=== PATIENT | female | born 1980 | race Caucasian/White ===

== ENCOUNTER 2024-04-10 00:51 | Emergency (ER) | payer OTHER, BC, SELFPAY ==
[2024-04-10 01:06] VITALS: BP 140/86; PULSE 107; TEMP 36.8; O2SAT 98; BMI 28.9
--- NOTE | 2024-04-10 01:32 | ED.SKABFB1 ---
HPI - Skin/Abscess/Foreign Bdy General Chief complaint: Skin/Abscess/Foreign Body Stated complaint: NASAL PAIN Time Seen by Provider: 04/10/24 01:18 Source: patient Mode of arrival: walk-in Limitations: no limitations History of Present Illness HPI narrative: The patient is a 43-year-old female who has a history of dyslipidemia and depression. She is presenting to the emergency department today for evaluation of left-sided facial and nasal pain. 2 days ago, the patient had pain under her left eye in the medial canthus area. There is no redness, discharge, or drainage but was exquisitely painful. Then, the patient developed pain in her right cheek and inside of her nose and had pain to the outside of her nostril area. The patient's pain radiates into her neck on the left side. It is worse by palpation. Relieved by nothing. The patient has been using a warm washcloth and placing it in the nare on the left side. The patient states her symptoms were preceded by a sinus infection 2 weeks ago which she used DayQuil and NyQuil for and manage her symptoms and felt like she had gotten better. The patient was not on antibiotic therapy. The patient does not have a headache. Patient does not have a sore throat. Patient is not putting any medication in her nose. Patient states that she did look in her nose to see if it was a pimple or something that she could pop as that is what it feels like. The pain is so uncomfortable she is unable to get any rest. It is moderate in severity. It is throbbing in nature. Worse to touch her nose or left face. Relieved by nothing. Related Data Home Medications ?Medication ?Instructions ?Recorded ?Confirmed atorvastatin 20 mg tablet mg 04/10/24 fluoxetine 40 mg capsule (Prozac) 40 mg PO DAILY 04/10/24 04/10/24 norgestimate-ethinyl estradiol tab 04/10/24 0.18 mg/0.215mg/0.25mg-35 mcg(28)tablet (Tri-Sprintec (28)) semaglutide 0.25 mg or 0.5 mg (2 0.25 mg subcut QWEEK 04/10/24 04/10/24 mg/3 mL) subcutaneous pen injector ([employer]) Allergies Allergy/AdvReac Type Severity Reaction Status Date / Time No Known Drug Allergies Allergy Verified 04/10/24 00:56 Review of Systems ROS Status of ROS 10 or more systems reviewed and unremarkable except as noted in history and below [facility] Medical History High cholesterol ?E78.00 - Pure hypercholesterolemia, unspecified (ICD-10) Depression ?F32.A - Depression, unspecified (ICD-10) Anxiety ?F41.9 - Anxiety disorder, unspecified (ICD-10) Social History Little interest or pleasure in doing things: not at all Feeling down, depressed, or hopeless: not at all Exam Narrative Exam Narrative: Prior to examining the patient, I have washed with hospital approved and provided Antiseptic Hand Endo Tech and have also applied gloves.? Prior to touching the patient, I asked for consent to examine the patient.? General: Alert and oriented, well nourished, mild distress. Eye: PERRL, EOMI, normal conjunctiva. HENT: Normocephalic, normal hearing, moist oral mucosa, no scleral icterus, mild left maxillary sinus tenderness. There is fullness appreciated to just gross inspection of the patient's face. Tympanic membranes are not red, dull, bulging. The patient's nasal turbinates on the left side are erythematous and edematous. There is purulent nasal discharge present. There is swelling to the inferior portion of the nare or the upper portion of the lip meet. There is no fluctuance appreciated. It is edematous. Neck: Supple, non-tender, no carotid bruits, no JVD, mild left anterior cervical lymphadenopathy Lungs: Clear to auscultation and percussion, non-labored respiration. Heart: Normal rate, regular rhythm, no murmur, gallop or edema. Musculoskeletal: Normal range of motion and strength, no tenderness or swelling. Skin: Skin is warm, dry and pink, no rashes or lesions. Neurologic: Awake, alert, and oriented X3, CN II-XII intact. Psychiatric: Cooperative, appropriate mood and affect.? Following the conclusion of the examination, I have washed my hands thoroughly after removing examination gloves. Constitutional Vital Signs, click to edit/add: Last Vital Signs Temp 98.2 F 04/10/24 01:06 Pulse 107 H 04/10/24 01:06 Resp 19 04/10/24 01:06 BP 140/86 04/10/24 01:06 Pulse Ox 98 04/10/24 01:06 O2 Del Method Room Air 04/10/24 01:06 Course Course Hospital Course: Upon evaluating the patient I feel she would benefit greatly from a dose of intravenous antibiotic therapy. We are going to give the patient Unasyn 1.5 g IV piggyback and Toradol 30 mg IV push. The patient is then going to continue to use her hot packs to her nose and she will resume taking antibiotics and analgesic medications at home. The patient has no known history of MRSA. Vital Signs Vital signs: Vital Signs Temperature 98.2 F 04/10/24 01:06 Pulse Rate 107 H 04/10/24 01:06 Respiratory Rate 19 04/10/24 01:06 Blood Pressure 140/86 04/10/24 01:06 Pulse Oximetry 98 04/10/24 01:06 Oxygen Delivery Method Room Air 04/10/24 01:06 Temperature 98.2 F 04/10/24 01:06 Pulse Rate 107 H 04/10/24 01:06 Respiratory Rate 19 04/10/24 01:06 Blood Pressure 140/86 04/10/24 01:06 Pulse Oximetry 98 04/10/24 01:06 Oxygen Delivery Method Room Air 04/10/24 01:06 MDM - Skin/Abscess/Foreign Bdy MDM Narrative Medical decision making narrative: Patient is a 43-year-old female who drove her self to the emergency department for left-sided facial pain and nasal pain. Patient is unable to rest. Patient has no known history of MRSA. Differential Diagnosis Differential diagnosis: Likely abscess of skin or subcutaneous tissue, herpes zoster, cellulitis, eczema, impetigo, contact dermatitis and other (Sinusitis) Medical Records Attestation: I reviewed the patient's medical records. Discharge Plan Discharge Stand Alone Forms: Work/School Release Chief Complaint: Skin/Abscess/Foreign Body Clinical Impression: Cellulitis Qualifiers: Site of cellulitis: face Qualified Code(s): L03.211 - Cellulitis of face Patient Disposition: Home, Self-Care Time of Disposition Decision: 01:39 Condition: Good Prescriptions / Home Meds: No Action atorvastatin 20 mg tablet norgestimate-ethinyl estradiol [Tri-Sprintec (28)] 0.18/0.215/0.25 mg-35 mcg (28) tablet Ozempic 0.25 mg or 0.5 mg (2 mg/3 mL) pen injector 0.25 mg subcut QWEEK Rx Instructions: for 4 weeks fluoxetine [Prozac] 40 mg capsule 40 mg PO DAILY Print Language: Montenegrin Instructions: Cellulitis (ED), Warm Compress or Soak (ED) Referrals: PRINCE TERAN [Primary Care Provider] - 1 week
[2024-04-10] MEDS: KETOROLAC TROMETHAMINE 30 MG/ML VIAL IVP (01:44)
[2024-04-10] MEDS: AMPICILLIN SODIUM IV (01:51)
[2024-04-10] MEDS: SODIUM CHLORIDE 0.9% IV (01:51)
[2024-04-10] MEDS: SULBACTAM NA IV (01:51)
[2024-04-10 02:22] VITALS: BP 109/73; PULSE 88; TEMP 36.9; O2SAT 99
--- NOTE | 2024-04-10 02:47 | PC.NURSE ---
i gave this patient verbal and written discharge orders and she voices yes to understanding these. at time of discharge this patient voices no concerns and shows no signs of distress
== END 2024-04-10 02:50 | disposition home or self-care (01) ==
PROVIDERS: Emergency Provider Emergency Medicine; PCP Nurse Practitioner Family
DX: L03.211 Cellulitis of face (principal); E78.5 Hyperlipidemia, unspecified; F32.A Depression, unspecified
CPT/HCPCS: 96365; 96375; 99284; J0295; J1885

== ENCOUNTER 2024-04-11 10:35 | Emergency (ER) | payer OTHER, BC, SELFPAY ==
[2024-04-11 10:40] VITALS: BP 108/76; PULSE 85; TEMP 36.7; O2SAT 96; BMI 28.9
[2024-04-11 11:00] VITALS: O2SAT 96
--- NOTE | 2024-04-11 15:18 | ED_ITS ---
HPI HPI - General Adult General Chief complaint: Skin/Abscess/Foreign Body Stated complaint: FACIAL SWELLING - CELLULITIS Time Seen by Provider: 04/11/24 10:39 Source: patient Mode of arrival: walk-in Limitations: no limitations History of Present Illness HPI narrative: Patient presents to the ED with facial swelling. She was seen in the's ED yesterday for an area of infection in the left nasal cavity. She was treated with 3 g of IV Unasyn and placed on Augmentin. She has had 2 doses of Augmentin so far. She has experienced some chills and noticed increased swelling of the face so she came in for evaluation she denies dental pain or visual symptoms. Related Data Home Medications ?Medication ?Instructions ?Recorded ?Confirmed atorvastatin 20 mg tablet mg 04/10/24 fluoxetine 40 mg capsule (Prozac) 20 mg PO DAILY 04/10/24 04/11/24 norgestimate-ethinyl estradiol 1 tab 04/10/24 0.18 mg/0.215mg/0.25mg-35 mcg(28)tablet (Tri-Sprintec (28)) semaglutide 0.25 mg or 0.5 mg (2 0.25 mg subcut QWEEK 04/10/24 04/10/24 mg/3 mL) subcutaneous pen injector ([employer]) Previous Rx's ?Medication ?Instructions ?Recorded amoxicillin 875 mg-potassium 1 tab PO BID #20 tabs 04/10/24 clavulanate 125 mg tablet hydrocodone 5 mg-acetaminophen 325 1 tab PO Q4H PRN pain (scale score 04/10/24 mg tablet 4-6) #14 tabs doxycycline hyclate 100 mg capsule 100 mg PO BID 10 days #20 caps 04/11/24 mupirocin calcium 2 % topical cream 1 applic topical TID #15 grams 04/11/24 Allergies Allergy/AdvReac Type Severity Reaction Status Date / Time No Known Drug Allergies Allergy Verified 04/11/24 10:39 Opioid HPI Opioid Management Most Recent Opioid Data: Last Pain Scale 3 04/11/24 11:00 04/11/24 Review of Systems ROS Status of ROS 10 or more systems reviewed and unremark able except as noted in history and below [facility] Medical History High cholesterol ?E78.00 - Pure hypercholesterolemia, unspecified (ICD-10) Depression ?F32.A - Depression, unspecified (ICD-10) Anxiety ?F41.9 - Anxiety disorder, unspecified (ICD-10) Social History Little interest or pleasure in doing things: not at all Feeling down, depressed, or hopeless: not at all Exam Narrative Exam Narrative: Afebrile and nondistressed. Patient has puffiness of the floor of the left nasal cavity and over the left cheek and left lower eyelid. There is no proptosis or periorbital induration around the left eye. Both pupils are equal and reactive. There is tenderness and swelling along the floor of the left nares consistent with cellulitis and early abscess formation. Oral cavity is moist. Lung sounds are clear to auscultation bilaterally. Heart has regular rate and rhythm. She moves all extremities actively. Abdomen is soft and benign. Constitutional Vital Signs, click to edit/add: Last Vital Signs Temp 98.1 F 04/11/24 10:40 Pulse 85 04/11/24 10:40 Resp 20 04/11/24 10:40 BP 108/76 04/11/24 10:40 Pulse Ox 96 04/11/24 11:00 O2 Del Method Room Air 04/11/24 11:00 Course Vital Signs Vital signs: Vital Signs Temperature 98.1 F 04/11/24 10:40 Pulse Rate 85 04/11/24 10:40 Respiratory Rate 20 04/11/24 10:40 Blood Pressure 108/76 04/11/24 10:40 Pulse Oximetry 96 04/11/24 10:40 Temperature 98.1 F 04/11/24 10:40 Pulse Rate 85 04/11/24 10:40 Respiratory Rate 20 04/11/24 10:40 Blood Pressure 108/76 04/11/24 10:40 Pulse Oximetry 96 04/11/24 11:00 Oxygen Delivery Method Room Air 04/11/24 11:00 Medical Decision Making MDM Narrative Medical decision making narrative: CT scan is obtained of the face which shows soft tissue thickening involving the left nare with no focal fluid collection. There is no retroseptal hemorrhage. Mild disease of the paranasal sinuses is reported. The nasal septum is midline. A nasal swab was obtained for MRSA identification and patient is additionally placed on doxycycline 100 mg twice a day for 10 days. She is to continue taking Augmentin. Warm moist compresses to be applied to the area. She is to seek early follow-up with PCP and may return to the ED anytime for worsening symp toms. Discharge Plan Discharge Chief Complaint: Skin/Abscess/Foreign Body Clinical Impression: Abscess of face Patient Disposition: Home, Self-Care Time of Disposition Decision: 12:11 Condition: Good Mode of Transportation: Private Vehicle Prescriptions / Home Meds: New doxycycline hyclate 100 mg capsule 100 mg PO BID 10 Days Qty: 20 0RF mupirocin calcium 2 % cream 1 applic topical TID Qty: 15 0RF No Action atorvastatin 20 mg tablet norgestimate-ethinyl estradiol [Tri-Sprintec (28)] 0.18/0.215/0.25 mg-35 mcg (28) tablet 1 tab Ozempic 0.25 mg or 0.5 mg (2 mg/3 mL) pen injector 0.25 mg subcut QWEEK Rx Instructions: for 4 weeks fluoxetine [Prozac] 40 mg capsule 20 mg PO DAILY hydrocodone-acetaminophen 5-325 mg tablet 1 tab PO Q4H PRN (Reason: pain (scale score 4-6)) Qty: 14 0RF amoxicillin-pot clavulanate 875-125 mg tablet 1 tab PO BID Qty: 20 0RF Print Language: Romanian Instructions: Abscess (ED) Additional Instructions: Apply warm moist compresses to affected area for 10 minutes 5-6 times a day. Follow-up in the next 2 or 3 days, sooner if worse. Return for worsening symptoms. Referrals: PRICNE TERAN [Primary Care Provider] - 1 week Discharge Date/Time: 04/11/24 12:22
== END 2024-04-11 12:22 | disposition home or self-care (01) ==
PROVIDERS: Emergency Provider Emergency Medicine; PCP Nurse Practitioner Family
DX: L02.01 Cutaneous abscess of face (principal)
CPT/HCPCS: 70486; 87081; 99284

== ENCOUNTER 2024-07-16 06:43 | Outpatient (OUT) | payer OTHER, BC, SELFPAY ==
--- OUTSIDE RECORDS SUMMARY | 2024-07-16 06:48 | XMS_ITS | CCD ---
Author Organization [facility] Care Team Providers Care Financial Analyst Accountant Name Role Phone Opal Teran Unavailable MichaelMirian watermann Unavailable Jimena Sy Unavailable Ashanti Padilla Unavailable BHUPENDRA Teran Primary Care Provider BHUPENDRA Teran Attending Provider DO Grayson Resendiz Attending Provider [phone] ELIDA TEARN Admitting Unavail ELIDA Young Attending Unavail able BHUPENDRA Teran Primary Care Provider U navailNANETTE Young Attending Provider DO Grayson Resendiz Attending Provider [phone] NO FAMILY, PHYSICIAN Primary Care Provider Unava ilable [facility] Grayson Attending Provider JARRETT Da Silva Attending Provider [phone] Martín [facility] Ad[facility] Unavailable NO FAMILY, PHYSICIAN Primary Care Unavailable Ruthie Da Silva Attending Unavailable Ruthie Da Silva Admitting Unavailable Medications Current Medications Medication Drug Class(es) Dates Sig (Normalized) Sig (Original) ALPRAZolam 0.25 mg oral tablet (20 sources) Benzodiazepine Start: 12-07-2023 Alprazolam 0.25 mg tablet Active MG PO as needed December 07, 2023 12:00am Start: 12-07-2023 Alprazolam Act haroon MG PO December 07, 2023 12:00am Start: 11-29-2020 take 1 tablet by mita th every twelve hours Xanax 0.25 MG 1 tablet as needed Orally Twice a day for 15 days PRN Nov, Active Start: 02-13-2020 take 1 tablet by mita th once daily as needed Xanax 0.5 MG 1 tablet Orally ONCE A DAY as NEEDED for 15 day(s) Feb, Active amoxicillin 875 mg oral tablet (6 sources) Penicillin-class Antibacterial Start: 06-23-2021 take 1 tablet by mouth every twelve hours Amoxicillin 875 MG 1 tablet Orally Twice a day for 7 days June, Active busPIRone hydrochloride 5 mg oral tablet (1 source) Start: 07-08-2024 take 1 tablet by mouth twice daily Buspirone 5 mg tablet Active 5 MG PO Twice daily 60 July 08, 2024 12:00am cephalexin 500 mg oral capsule (1 source) Cephalosporin Antibacterial Start: 03-20-2022 take 1 capsule by mouth every eight hours Cephalexin 500 MG 1 capsule Orally three times a day for 10 day(s) Mar, Active Norgestimate-Ethiny l Estradiol (19 sources) Progestin, Estrogen Start: 12-07-2023 Norgestimate-Eth inyl Estradiol (Tri-Sprintec (28)) 0.18/0.215/0.25 mg-35 mcg (28) tablet Active TAB PO December 07, 2023 12:00am Start: 06-24-2016 take 1 tablet by mita th every twenty-four hours Tri-Sprintec 0.18/0.215/0.25 MG-35 MCG 1 tablet Orally Once a day for 28 day(s) June, Active Start: 06-24-2016 take 1 tablet by mita th every twenty-four hours Tri-Sprintec 0.18/0.215/0.25 MG-35 MCG 1 tablet Orally Once a day for 30 days June, Active Start: 06-24-2016 take 1 tablet by mita th every twenty-four hours Tri-Sprintec 0.18/0.215/0.25 MG-35 MCG 1 tablet Orally Once a day for 90 days June, Active fluconazole 150 mg oral tablet (3 sources) Azole Antifungal Start: 06-27-2021 Diflucan 150 MG 1 tablet Orally as directed Take 1 tablet today, take the second tablet in 3 days. June, Active FLUoxetine 20 mg oral capsule (19 sources) Serotonin Reuptake Inhibitor Start: 12-07-2023 Fluoxetine 20 mg capsule Active MG PO December 07, 2023 12:00am Start: 12-07-2023 Fluoxetine Act haroon MG PO December 07, 2023 12:00am Start: 04-26-2019 take 1 capsule by [facility] every twenty-four hours PROzac 20 MG 1 capsule Orally Once a day for 90 days Apr, Active lidocaine hydrochloride 20 mg/ml mucous membrane topical solution (8 sources) Antiarrhythmic, Amide Local Anesthetic Start: 06-23-2021 Lidocaine Viscous HCl 2 % 5 ml as needed swish in throat Mouth/Throat every 3 hrs June, Active methylPREDNISolone 4 mg oral tablet (12 sources) Corticosteroid Start: 06-16-2021 methylPREDNISolone 4 MG as directed Orally Once a day for 6 days June, Active Start: 01-25-2020 Medrol (Bud) 4 MG half of daily dose in the morning with food and the rest at night with food Orally Jan, Active predniSONE 10 mg oral tablet (1 source) Start: 09-26-2021 take 1 tablet by mouth every twenty-four hours predniSONE 10 MG 1 tablet Orally Once a day for 7 days Sep, Active Semaglutide/Niaci namide/Methylcoba rodríguez (1 source) Start: 07-08-2024 inject 0.6 mg by subcutaneous injection every week Semaglutide/Niac inamide/Methylco balamin Active 0.6 MG SUBCUT Once a week July 08, 2024 12:00am tiZANidine 4 mg oral tablet (4 sources) Central alpha-2 Adrenergic Agonist Start: 01-25-2020 take 4 mg by mouth every eight hours Zanaflex 4 MG 1/2 to 1 Orally every 8 hrs for 10 day(s) Jan, Active Completed/Discontinued Medications Medication Drug Class(es) Dates Sig (Normalized) Sig (Original) atorvastatin 20 mg oral tablet (19 sources) HMG-CoA Reductase Inhibitor Start: 12-07-2023 End: 07-08-2024 Atorvastatin 20 mg tablet Discontinued MG PO December 07, 2023 12:00am July 08, 2024 8:06am Start: 12-07-2023 Atorvastatin A ctive MG PO December 07, 2023 12:00am Start: 11-29-2020 take 1 tablet by mita th every twenty-four hours Atorvastatin Calcium 20 MG 1 tablet Orally Once a day for 90 days Nov, Active Dexamethasone (10 sources) Corticosteroid Start: 06-24-2021 DEXAMETHASONE June, 10 mg Ketorolac (13 sources) Nonsteroidal Anti-inflammatory Drug, Cyclooxygenase Inhibitor Start: 01-25-2020 Toradol per 15 mg Jan, 30 mg 24 hr metFORMIN hydrochloride 500 mg extended release oral tablet (3 sources) Biguanide Start: 12-07-2023 End: 07-08-2024 take 1 tablet by mouth every twenty-four hours Metformin 500 mg tablet extended release 24 hr Discontinued MG PO December 07, 2023 12:00am July 08, 2024 8:06am Start: 12-07-2023 Metformin Acti ve MG PO December 07, 2023 12:00am Rochepin 1 Gram (10 sources) Start: 06-24-2021 Rochepin 1 Gra m June, 1 g triamcinolone acetonide 40 mg/ml injectable suspension (17 sources) Corticosteroid Start: 09-26-2021 Kenalog-40 Sep, 40 mg Start: 01-25-2020 KENALOG - 10 m g Jan, 40 mg Problems Active Problems Problem Classification Problem Date Documented Da te Episodic/Chronic Anxiety disorders (20 sources) Generalized anxiety disorder; Translations: [Generalized anxiety disorder] Onset: 11-29-2020 Resolved: 11-29-2020 Chronic Disorders of lipid metabolism (18 sources) Mixed hyperlipidemia; Translations: [Mixed hyperlipidemia] Onset: 11-29-2020 Resolved: 09-21-2021 Chronic Malaise and fatigue (16 sources) Fatigue; Translations: [Chronic fatigue, unspecified] Chronic Open wounds of head; neck; and trunk (1 source) Laceration without foreign body of other part of head, initial encounter Episodic Other skin disorders (2 sources) Localized swelling, mass and lump, head; Translations: [Swelling, mass, or lump in head and neck] 07-08-2024 Episodic Other upper respiratory infections (12 sources) Sore throat symptom; Translations: [Acute pharyngitis, unspecified] Onset: 06-16-2021 Resolved: 06-24-2021 Episodic Past or Other Problems Problem Classification Problem Date Documented Da te Episodic/Chronic Allergic reactions (1 source) Unspecified contact dermatitis, unspecified cause Onset: 09-26-2021 Resolved: 09-26-2021 Episodic Immunizations and screening for infectious disease (1 source) Encounter for immunization Onset: 01-31-2021 Resolved: 01-31-2021 Episodic Lymphadenitis (3 sources) Generalized enlarged lymph nodes; Translations: [Localized enlarged lymph nodes] Onset: 06-24-2021 Resolved: 08-20-2021 Episodic Unclassified (1 source) Contact with and (suspected) exposure to covid-19 Z20.822 Viral infection (1 source) COVID-19 Results Test Name Value Interpretation Reference Range Facility No Panel InformationOrdered By: Ruthie Da Silva on 12-07-2023 Quick Strep (POC) [facility] Throat Cultureon 12-07-2023 Throat culture Moderate Normal Respiratory Ramya 2 Days PERFORMED BY: [place] [address] PATHOLOGIST AIR CARRIER OPERATIONS INSPECTOR MARTI HAIRSTON M.D. Normal [facility] Comment on above: Performed By: #### C UT #### [facility] [address] [place] [address] Automated basophil %Ordered By: Grayson Resendiz on 10-05-2023 Basophils/100 WBC (Bld) 0.9 % Normal . [facility] Comment on above: Performed By: #### P ILLAR CBC, PILLAR BMP, PILLAR LIPID, PILLAR TSH, EBS A1C #### [facility] [address] Automated basophil countOrde red By: Grayson Resendiz on 10-05-2023 Basophils (Bld) [#/Vol] 0.1 10*3/uL Normal 0.0-0.2 [facility] Comment on above: Result Comment: PERF ORMED BY: [place] [address] PATHOLOGIST AIR CARRIER OPERATIONS INSPECTOR MARTI HAIRSTON M.D. Performed By: #### P ILLAR CBC, PILLAR BMP, PILLAR LIPID, PILLAR TSH, EBS A1C #### [address] Automated blood monocyte cou ntOrdered By: Grayson Resendiz on 10-05-2023 Monocytes (Bld) [#/Vol] 1.0 10*3/uL High 0.0-0.8 [facility] Comment on above: Performed By: #### P ILLAR CBC, PILLAR BMP, PILLAR LIPID, PILLAR TSH, EBS A1C #### [address] Automated eosinophil %Ordere d By: Grayson Resendiz on 10-05-2023 Eosinophils/100 WBC (Bld) 1.8 % Normal . [facility] Comment on above: Performed By: #### P ILLAR CBC, PILLAR BMP, PILLAR LIPID, PILLAR TSH, EBS A1C #### [address] Automated eosinophil countOr dered By: Grayson Resendiz on 10-05-2023 Eosinophils (Bld) [#/Vol] 0.2 10*3/uL Normal 0.0-0.45 [facility] Comment on above: Performed By: #### P ILLAR CBC, PILLAR BMP, PILLAR LIPID, PILLAR TSH, EBS A1C #### [address] Automated monocyte %Ordered By: Grayson Resendiz on 10-05-2023 Monocytes/100 WBC (Bld) 10.6 % Normal . [facility] Comment on above: Performed By: #### P ILLAR CBC, PILLAR BMP, PILLAR LIPID, PILLAR TSH, EBS A1C #### [address] Automated neutrophil %Ordere d By: Grayson Resendiz on 10-05-2023 Neutrophils/100 WBC (Bld) 52.5 % Normal . [facility] Comment on above: Performed By: #### P ILLAR CBC, PILLAR BMP, PILLAR LIPID, PILLAR TSH, EBS A1C #### [address] Calcium [Mass/volume] in Ser um or PlasmaOrdered By: Grayson Resendiz on 10-05-2023 Calcium [Mass/Vol] 9.0 mg/dL Normal 8.6-10.3 [facility] Comment on above: Performed By: #### P ILLAR CBC, PILLAR BMP, PILLAR LIPID, PILLAR TSH, EBS A1C #### [facility] [address] [place] [address] [place] Carbon dioxide, total [Moles /volume] in Serum or PlasmaOrdered By: Grayson Resendiz on 10-05-2023 CO2 [Moles/Vol] 23.4 mmol/L Normal 21.0-31.0 [facility] Comment on above: Performed By: #### P ILLAR CBC, PILLAR BMP, PILLAR LIPID, PILLAR TSH, EBS A1C #### [facility] [address] [place] [address] [place] Chloride [Moles/volume] in S shiva or PlasmaOrdered By: Grayson Resendiz on 10-05-2023 Chloride [Moles/Vol] 107 mmol/L Normal 98-107 [facility] Comment on above: Performed By: #### P ILLAR CBC, PILLAR BMP, PILLAR LIPID, PILLAR TSH, EBS A1C #### [facility] [address] [place] [address] [place] Cholesterol [Mass/volume] in Serum or PlasmaOrdered By: Grayson Resendiz on 10-05-2023 Cholesterol [Mass/Vol] 133 mg/dL Low 140-200 [facility] Comment on above: Chol less than 200 m g/dl low riskChol 201-239 mg/dl borderline riskChol 240 mg/dl and greater high risk Result Comment: Chol less than 200 mg/dl low risk Chol 201-239 mg/dl borderline risk Chol 240 mg/dl and greater high risk Performed By: #### P ILLAR CBC, PILLAR BMP, PILLAR LIPID, PILLAR TSH, EBS A1C #### [facility] [address] [place] [address] [place] Cholesterol in LDL Calc [Mas s/Vol]Ordered By: Grayson Resendiz on 10-05-2023 Cholesterol in LDL [Mass/Vol] 37 mg/dL 0-100 [facility] Comment on above: LDL ATP III CLASSIFI CATIONLDL less than 100 mg/dL OptimalLDL 100-129 mg/dL Near or above optimalLDL 130-159 mg/dL Borderline highLDL 160-189 mg/dL HighLDL greater than 189 mg/dL Very high Cholesterol in VLDL Calc [Ma ss/Vol]Ordered By: Grayson Resendiz on 10-05-2023 Cholesterol in VLDL [Mass/Vol] 42 mg/dL [facility] Creatinine [Mass/volume] in Serum or PlasmaOrdered By: Grayson Resendiz on 10-05-2023 Creatinine [Mass/Vol] 0.66 mg/dL Normal 0.60-1.[address] [facility] Comment on above: Performed By: #### P ILLAR CBC, PILLAR BMP, PILLAR LIPID, PILLAR TSH, EBS A1C #### [address] EBS A1C with Estimated Ave G luon 10-05-2023 Glucose [Mass/Vol] 120 mg/dL Normal [facility] Comment on above: Result Comment: PERF ORMED BY: [place] [address] PATHOLOGIST AIR CARRIER OPERATIONS INSPECTOR MARTI HAIRSTON M.D. Performed By: #### P ILLAR CBC, PILLAR BMP, PILLAR LIPID, PILLAR TSH, EBS A1C #### [address] EBS A1C with Estimated Ave G luOrdered By: Grayson Resendiz on 10-05-2023 HbA1c (Bld) [Mass fraction] 5.8 % High 4.3-5.6 [facility] Comment on above: Increased risk for d iabetes: 5.7 - 6.4diabetes: >6.4glycemic control for adults with diabetes: <7.0 Result Comment: Incr eased risk for diabetes: 5.7 - 6.4 diabetes: >6.4 glycemic control for adults with diabetes: <7.0 Performed By: #### P ILLAR CBC, PILLAR BMP, PILLAR LIPID, PILLAR TSH, EBS A1C #### [facility] [address] [place] [address] Employee Basic Metabolic Rooney geraldine 10-05-2023 GFR/1.73 sq M.predicted MDRD (S/P/Bld) [Vol rate/Area] mL/min/{1.73_m2} Normal [facility] Comment on above: Performed By: #### P ILLAR CBC, PILLAR BMP, PILLAR LIPID, PILLAR TSH, EBS A1C #### [facility] [address] Employee Complete Blood Coun ton 10-05-2023 Mean Corpuscular HGB Conc 33.6 g/dL Normal 32.0-35.0 [facility] Comment on above: Performed By: #### P ILLAR CBC, PILLAR BMP, PILLAR LIPID, PILLAR TSH, EBS A1C #### [address] NRBC% 0.2 /100{WBC} Normal 0-0.5 [facility] Comment on above: Performed By: #### P ILLAR CBC, PILLAR BMP, PILLAR LIPID, PILLAR TSH, EBS A1C #### [address] Employee Lipid Profileon LDL Cholesterol,Calculated 37 mg/dL Normal 0-100 [facility] Comment on above: Result Comment: LDL ATP III CLASSIFICATION LDL less than 100 mg/dL Optimal LDL 100-129 mg/dL Near or above optimal LDL 130-159 mg/dL Borderline high LDL 160-189 mg/dL High LDL greater than 189 mg/dL Very high Performed By: #### P ILLAR CBC, PILLAR BMP, PILLAR LIPID, PILLAR TSH, EBS A1C #### [address] Triglyceride w/Reflex 212 mg/dL High 0-149 [facility] Comment on above: Result Comment: TRIG ATP III CLASSIFICATION TRIG less than 150 mg/dL Normal TRIG 150-199 mg/dL Borderline high TRIG 200-500 mg/dL High TRIG greater than 500 mg/dL Very high Standard traceable to the Center for Disease Conrtrol and Prevention (CDC) test method. Performed By: #### P ILLAR CBC, PILLAR BMP, PILLAR LIPID, PILLAR TSH, EBS A1C #### [facility] [address] [place] [address] VLDL CHOLESTEROL 42 mg/dL Normal [facility] Comment on above: Performed By: #### P ILLAR CBC, PILLAR BMP, PILLAR LIPID, PILLAR TSH, EBS A1C #### [facility] [address] [place] [address] Employee Thyroid Stim Hormon cole 10-05-2023 Employee Thyroid Stim Hormone 1.43 u[iU]/mL Normal 0.45-5.33 [facility] Comment on above: Result Comment: PERF ORMED BY: [place] [address] PATHOLOGIST AIR CARRIER OPERATIONS INSPECTOR MARTI HAIRSTON M.D. Performed By: #### P ILLAR CBC, PILLAR BMP, PILLAR LIPID, PILLAR TSH, EBS A1C #### [address] Erythrocyte distribution wid th [Ratio] by Automated countOrdered By: Grayson Resendiz on 10-05-2023 Erythrocyte distribution width (RBC) [Ratio] 13.3 % Normal 11.9-15.3 [facility] Comment on above: Performed By: #### P ILLAR CBC, PILLAR BMP, PILLAR LIPID, PILLAR TSH, EBS A1C #### [facility] [address] [place] [address] Erythrocytes [#/volume] in B lood by Automated countOrdered By: Grayson Resendiz on 10-05-2023 RBC (Bld) [#/Vol] 4.08 10*6/uL Normal 3.60-5.00 [facility] Comment on above: Performed By: #### P ILLAR CBC, PILLAR BMP, PILLAR LIPID, PILLAR TSH, EBS A1C #### [facility] [address] [place] [address] [place] Glucose [Mass/volume] in Ser um or PlasmaOrdered By: Grayson Resendiz on 10-05-2023 Glucose [Mass/Vol] 103 mg/dL High 70-100 [facility] Comment on above: ADA recommended refe rence range Result Comment: ADA recommended reference range Performed By: #### P ILLAR CBC, PILLAR BMP, PILLAR LIPID, PILLAR TSH, EBS A1C #### [facility] [address] Glucose mean value [Mass/vol ume] in Blood Estimated from glycated hemoglobinOrdered By: Grayson Resendiz on 10-05-2023 Average glucose Estimated from glycated hemoglobin (Bld) [Mass/Vol] 120 mg/dL [facility] Hematocrit [Volume Fraction] of Blood by Automated countOrdered By: Grayson Resendiz on 10-05-2023 Hematocrit (Bld) [Volume fraction] 38.6 % Normal 34.0-46.4 [facility] Comment on above: Performed By: #### P ILLAR CBC, PILLAR BMP, PILLAR LIPID, PILLAR TSH, EBS A1C #### [facility] [address] [place] [address] [place] Hemoglobin [Mass/volume] in BloodOrdered By: Grayson Resendiz on 10-05-2023 Hemoglobin (Bld) [Mass/Vol] 13.0 g/dL Normal 11.8-15.4 [facility] Comment on above: Performed By: #### P ILLAR CBC, PILLAR BMP, PILLAR LIPID, PILLAR TSH, EBS A1C #### [facility] [address] [place] [address] [place] Leukocytes [#/volume] correc scarlett for nucleated erythrocytes in Blood by Automated counOrdered By: Grayson Resendiz on 10-05-2023 WBC corrected for nucl RBC Auto (Bld) [#/Vol] 9.2 10*3/uL 3.8-11.6 [facility] Leukocytes [#/volume] in Blo od by Automated countOrdered By: Grayson Resendiz on 10-05-2023 WBC (Bld) [#/Vol] 9.2 10*3/uL Normal 3.8-11.6 [facility] Comment on above: Performed By: #### P ILLAR CBC, PILLAR BMP, PILLAR LIPID, PILLAR TSH, EBS A1C #### [facility] [address] [place] [address] [place] Lymphocytes [#/volume] in Bl ood by Automated countOrdered By: Grayson Resendiz on 10-05-2023 Lymphocytes (Bld) [#/Vol] 3.1 10*3/uL Normal 1.00-4.8 [facility] Comment on above: Performed By: #### P ILLAR CBC, PILLAR BMP, PILLAR LIPID, PILLAR TSH, EBS A1C #### [facility] [address] Lymphocytes/100 leukocytes i n Blood by Automated countOrdered By: Grayson Resendiz on 10-05-2023 Lymphocytes/100 WBC (Bld) 34.2 % Normal . [facility] Comment on above: Performed By: #### P ILLAR CBC, PILLAR BMP, PILLAR LIPID, PILLAR TSH, EBS A1C #### [facility] [address] MCH [Entitic mass] by Automa scarlett countOrdered By: Grayson Resendiz on 10-05-2023 MCH (RBC) [Entitic mass] 31.8 pg Normal 24.7-34.3 [facility] Comment on above: Performed By: #### P ILLAR CBC, PILLAR BMP, PILLAR LIPID, PILLAR TSH, EBS A1C #### [facility] [address] MCHC Auto (RBC) [Mass/Vol]Or dered By: Grayson Resendiz on 10-05-2023 MCHC (RBC) [Mass/Vol] 33.6 g/dL 32.0-35.[address] [facility] MCV [Entitic volume] by Auto mated countOrdered By: Grayson Resendiz on 10-05-2023 MCV (RBC) [Entitic vol] 94.6 fL Normal 80-100 [facility] Comment on above: Performed By: #### P ILLAR CBC, PILLAR BMP, PILLAR LIPID, PILLAR TSH, EBS A1C #### [facility] [address] Neutrophils [#/volume] in Bl ood by Automated countOrdered By: Grayson Resendiz on 10-05-2023 Neutrophils (Bld) [#/Vol] 4.8 10*3/uL Normal 1.8-7.7 [facility] Comment on above: Performed By: #### P ILLAR CBC, PILLAR BMP, PILLAR LIPID, PILLAR TSH, EBS A1C #### [facility] [address] No Panel InformationOrdered By: Grayson Resendiz on 10-05-2023 Estimated GFR (CKD-EPI) > 60.0 mL/Min [facility] Creatinine Clearance (Chem N/A [facility] Nucleated erythrocytes [Pres ence] in Blood by Automated countOrdered By: Grayson Resendiz on 10-05-2023 Nucleated RBC Auto Ql (Bld) 0.2 /100{WBC} 0-0.5 [facility] Platelet mean volume [Entiti c volume] in Blood by Automated countOrdered By: Grayson Resendiz on 10-05-2023 Platelet mean volume (Bld) [Entitic vol] 8.6 fL Normal 6.3-10.7 [facility] Comment on above: Performed By: #### P ILLAR CBC, PILLAR BMP, PILLAR LIPID, PILLAR TSH, EBS A1C #### [facility] [address] [place] [address] Platelets [#/volume] in Bloo d by Automated countOrdered By: Grayson Resendiz on 10-05-2023 Platelets (Bld) [#/Vol] 350 10*3/uL Normal 150-450 [facility] Comment on above: Performed By: #### P ILLAR CBC, PILLAR BMP, PILLAR LIPID, PILLAR TSH, EBS A1C #### [facility] [address] [place] [address] Potassium [Moles/volume] in Serum or PlasmaOrdered By: Grayson Resendiz on 10-05-2023 Potassium [Moles/Vol] 4.4 mmol/L Normal 3.5-5.[address] [facility] Comment on above: Performed By: #### P ILLAR CBC, PILLAR BMP, PILLAR LIPID, PILLAR TSH, EBS A1C #### [facility] [address] [place] [address] Serum or plasma anion gap de terminationOrdered By: rGayson Resendiz on 10-05-2023 Anion gap [Moles/Vol] 14.0 mmol/L Normal 6.0-15.0 [facility] Comment on above: Performed By: #### P ILLAR CBC, PILLAR BMP, PILLAR LIPID, PILLAR TSH, EBS A1C #### [facility] [address] Serum or plasma high density lipoprotein (HDL) cholesterol measurementOrdered By: Grayson Resendiz on 10-05-2023 Cholesterol in HDL [Mass/Vol] 54 mg/dL Normal 23-92 [facility] Comment on above: HDL CHOL ATP-III CLA SSIFICATION Cardiovascular RiskHDL > or equal to 60 mg/dL LOWHDL < 40 mg/dL HIGH Result Comment: HDL CHOL ATP-III CLASSIFICATION Cardiovascular Risk HDL > or equal to 60 mg/dL LOW HDL < 40 mg/dL HIGH Performed By: #### P ILLAR CBC, PILLAR BMP, PILLAR LIPID, PILLAR TSH, EBS A1C #### [facility] [address] [place] [address] Serum or plasma total choles terol/high density lipoprotein (HDL) cholesterol mass ratOrdered By: Grayson Resendiz on 10-05-2023 Cholesterol.total/Nataliia sterol in HDL [Mass ratio] 2.5 {ratio} Normal <5.0 [facility] Comment on above: Performed By: #### P ILLAR CBC, PILLAR BMP, PILLAR LIPID, PILLAR TSH, EBS A1C #### [address] Sodium [Moles/volume] in Ser um or PlasmaOrdered By: Grayson Resendiz on 10-05-2023 Sodium [Moles/Vol] 140 mmol/L Normal 136-145 [facility] Comment on above: Performed By: #### P ILLAR CBC, PILLAR BMP, PILLAR LIPID, PILLAR TSH, EBS A1C #### [address] Thyrotropin [Units/volume] i n Serum or PlasmaOrdered By: Grayson Resendiz on 10-05-2023 TSH Qn 1.43 m[IU]/L 0.45-5.33 [facility] Triglyceride [Mass/volume] i n Serum or PlasmaOrdered By: Grayson Resendiz on 10-05-2023 Triglyceride [Mass/Vol] 212 mg/dL High 0-149 [facility] Comment on above: TRIG ATP III CLASSIF ICATIONTRIG less than 150 mg/dL NormalTRIG 150-199 mg/dL Borderline highTRIG 200-500 mg/dL High TRIG greater than 500 mg/dL Very highStandard traceable to the Center for Disease Conrtrol and Prevention (CDC) test method. Urea nitrogen [Mass/volume] in Serum or PlasmaOrdered By: Grayson Resendiz on 10-05-2023 Urea nitrogen [Mass/Vol] 13 mg/dL Normal 7-25 [facility] Comment on above: Performed By: #### P ILLAR CBC, PILLAR BMP, PILLAR LIPID, PILLAR TSH, EBS A1C #### [facility] [address] Alanine aminotransferase [En zymatic activity/volume] in Serum or PlasmaOrdered By: Grayson Resendiz on 09-11-2022 ALT [Catalytic activity/Vol] 11 U/L 7-52 [facility] Albumin [Mass/volume] in Ser um or Plasma by Bromocresol green (BCG) dye binding methoOrdered By: Grayson Resendiz on 09-11-2022 Albumin BCG dye [Mass/Vol] 3.9 g/dL 3.5-5.7 [facility] Alkaline phosphatase [Enzyma tic activity/volume] in Serum or PlasmaOrdered By: Grayson Resendiz on 09-11-2022 ALP [Catalytic activity/Vol] 61 U/L 34-104 [facility] Aspartate aminotransferase [ Enzymatic activity/volume] in Serum or PlasmaOrdered By: Grayson Resendiz on 09-11-2022 AST [Catalytic activity/Vol] 12 U/L 13-39 [facility] Basophils Auto (Bld) [#/Vol] Ordered By: Grayson Resendiz on 09-11-2022 Basophils (Bld) [#/Vol] 0.1 10*3/uL 0.0-0.2 [facility] Basophils/100 WBC Auto (Bld) Ordered By: Grayson Resendiz on 09-11-2022 Basophils/100 WBC (Bld) 1.2 % . [facility] Bilirubin.total [Mass/volume ] in Serum or PlasmaOrdered By: Grayson Resendiz on 09-11-2022 Bilirubin [Mass/Vol] 0.3 mg/dL 0.3-1.0 [facility] Calcium [Mass/volume] in Ser um or PlasmaOrdered By: Grayson Resendiz on 09-11-2022 Calcium [Mass/Vol] 8.8 mg/dL 8.6-10.3 [facility] Carbon dioxide, total [Moles /volume] in Serum or PlasmaOrdered By: Grayson Resendiz on 09-11-2022 CO2 [Moles/Vol] 26.9 mmol/L 21.0-31.0 [facility] Chloride [Moles/volume] in S shiva or PlasmaOrdered By: Grayson Resendiz on 09-11-2022 Chloride [Moles/Vol] 106 mmol/L 98-107 [facility] Cholesterol [Mass/volume] in Serum or PlasmaOrdered By: Grayson Resendiz on 09-11-2022 Cholesterol [Mass/Vol] 142 mg/dL 140-200 [facility] Comment on above: Chol less than 200 m g/dl low riskChol 201-239 mg/dl borderline riskChol 240 mg/dl and greater high risk Cholesterol in LDL Calc [Mas s/Vol]Ordered By: Grayson Resendiz on 09-11-2022 Cholesterol in LDL [Mass/Vol] 31 mg/dL 0-100 [facility] Comment on above: LDL ATP III CLASSIFI CATIONLDL less than 100 mg/dL OptimalLDL 100-129 mg/dL Near or above optimalLDL 130-159 mg/dL Borderline highLDL 160-189 mg/dL HighLDL greater than 189 mg/dL Very high Cholesterol in VLDL Calc [Ma ss/Vol]Ordered By: Grayson Resendiz on 09-11-2022 Cholesterol in VLDL [Mass/Vol] 53 mg/dL [facility] Creatinine [Mass/volume] in Serum or PlasmaOrdered By: Grayson Resendiz on 09-11-2022 Creatinine [Mass/Vol] 0.73 mg/dL 0.60-1.[address] [facility] Eosinophils Auto (Bld) [#/Vo l]Ordered By: Grayson Resendiz on 09-11-2022 Eosinophils (Bld) [#/Vol] 0.2 10*3/uL 0.0-0.45 [facility] Eosinophils/100 WBC Auto (Bl d)Ordered By: Grayson Resendiz on 09-11-2022 Eosinophils/100 WBC (Bld) 2.2 % . [facility] Erythrocyte distribution wid th Auto (RBC) [Ratio]Ordered By: Grayson Resendiz on 09-11-2022 Erythrocyte distribution width (RBC) [Ratio] 12.5 % 11.9-15.3 [facility] Globulin Calc (S) [Mass/Vol] Ordered By: Grayson Resendiz on 09-11-2022 Globulin (S) [Mass/Vol] 2.5 g/dL [facility] Glucose [Mass/volume] in Ser um or PlasmaOrdered By: Grayson Resendiz on 09-11-2022 Glucose [Mass/Vol] 102 mg/dL 70-100 [facility] Comment on above: ADA recommended refe rence range Hematocrit Auto (Bld) [Volum e fraction]Ordered By: Grayson Resendiz on 09-11-2022 Hematocrit (Bld) [Volume fraction] 38.7 % 34.0-46.4 [facility] Hemoglobin [Mass/volume] in BloodOrdered By: Grayson Resendiz on 09-11-2022 Hemoglobin (Bld) [Mass/Vol] 12.9 g/dL 11.8-15.4 [facility] Leukocytes [#/volume] correc scarlett for nucleated erythrocytes in Blood by Automated counOrdered By: Grayson Resendiz on 09-11-2022 WBC corrected for nucl RBC Auto (Bld) [#/Vol] 9.2 10*3/uL 3.8-11.6 [facility] Lymphocytes Auto (Bld) [#/Vo l]Ordered By: Grayson Resendiz on 09-11-2022 Lymphocytes (Bld) [#/Vol] 4.0 10*3/uL 1.00-4.8 [facility] Lymphocytes/100 WBC Auto (Bl d)Ordered By: Grayson Resendiz on 09-11-2022 Lymphocytes/100 WBC (Bld) 43.8 % . [facility] MCH Auto (RBC) [Entitic mass ]Ordered By: Grayson Resendiz on 09-11-2022 MCH (RBC) [Entitic mass] 31.4 pg 24.7-34.3 [facility] MCHC Auto (RBC) [Mass/Vol]Or dered By: Grayson Resendiz on 09-11-2022 MCHC (RBC) [Mass/Vol] 33.4 g/dL 32.0-35.[address] [facility] MCV Auto (RBC) [Entitic vol] Ordered By: Grayson Resendiz on 09-11-2022 MCV (RBC) [Entitic vol] 94.2 fL 80-100 [facility] Monocytes Auto (Bld) [#/Vol] Ordered By: Grayson Resendiz on 09-11-2022 Monocytes (Bld) [#/Vol] 1.0 10*3/uL 0.0-0.8 [facility] Monocytes/100 WBC Auto (Bld) Ordered By: Grayson Resendiz on 09-11-2022 Monocytes/100 WBC (Bld) 10.8 % . [facility] Neutrophils Auto (Bld) [#/Vo l]Ordered By: Grayson Resendiz on 09-11-2022 Neutrophils (Bld) [#/Vol] 3.8 10*3/uL 1.8-7.7 [facility] Neutrophils/100 WBC Auto (Bl d)Ordered By: Grayson Resendiz on 09-11-2022 Neutrophils/100 WBC (Bld) 42.0 % . [facility] No Panel InformationOrdered By: Grayson Resendiz on 09-11-2022 Estimated GFR (CKD-EPI) > 60.0 mL/Min [facility] Creatinine Clearance (Chem N/A [facility] Nucleated erythrocytes [Pres ence] in Blood by Automated countOrdered By: Grayson Resendiz on 09-11-2022 Nucleated RBC Auto Ql (Bld) 0.1 /100{WBC} 0-0.5 [facility] Platelet mean volume Auto (B ld) [Entitic vol]Ordered By: Grayson Resendiz on 09-11-2022 Platelet mean volume (Bld) [Entitic vol] 8.6 fL 6.3-10.7 [facility] Platelets Auto (Bld) [#/Vol] Ordered By: Grayson Resendiz on 09-11-2022 Platelets (Bld) [#/Vol] 310 10*3/uL 150-450 [facility] Potassium [Moles/volume] in Serum or PlasmaOrdered By: Grayson Resendiz on 09-11-2022 Potassium [Moles/Vol] 4.2 mmol/L 3.5-5.[address] [facility] Protein [Mass/volume] in Ser um or PlasmaOrdered By: Grayson Resendiz on 09-11-2022 Protein [Mass/Vol] 6.4 g/dL 6.4-8.9 [facility] RBC Auto (Bld) [#/Vol]Ordere d By: Grayson Resendiz on 09-11-2022 RBC (Bld) [#/Vol] 4.11 10*6/uL 3.60-5.00 [facility] Serum or plasma albumin/glob ulin mass ratioOrdered By: Grayson Resendiz on 09-11-2022 Albumin/Globulin [Mass ratio] 1.6 {ratio} [facility] Serum or plasma anion gap de terminationOrdered By: Grayson Resendiz on 09-11-2022 Anion gap [Moles/Vol] 11.3 mmol/L 6.0-15.0 [facility] Serum or plasma high density lipoprotein (HDL) cholesterol measurementOrdered By: Grayson Resendiz on 09-11-2022 Cholesterol in HDL [Mass/Vol] 57 mg/dL 23-92 [facility] Comment on above: HDL CHOL ATP-III CLA SSIFICATION Cardiovascular RiskHDL > or equal to 60 mg/dL LOWHDL < 40 mg/dL HIGH Serum or plasma total choles terol/high density lipoprotein (HDL) cholesterol mass ratOrdered By: Grayson Resendiz on 09-11-2022 Cholesterol.total/Nataliia sterol in HDL [Mass ratio] 2.5 {ratio} <5.0 [facility] Sodium [Moles/volume] in Ser um or PlasmaOrdered By: Grayson Resendiz on 09-11-2022 Sodium [Moles/Vol] 140 mmol/L 136-145 [facility] Thyrotropin [Units/volume] i n Serum or PlasmaOrdered By: Grayson Resendiz on 09-11-2022 TSH Qn 1.31 m[IU]/L 0.45-5.33 [facility] Triglyceride [Mass/volume] i n Serum or PlasmaOrdered By: Grayson Resendiz on 09-11-2022 Triglyceride [Mass/Vol] 268 mg/dL 0-149 [facility] Comment on above: TRIG ATP III CLASSIF ICATIONTRIG less than 150 mg/dL NormalTRIG 150-199 mg/dL Borderline highTRIG 200-500 mg/dL High TRIG greater than 500 mg/dL Very highStandard traceable to the Center for Disease Conrtrol and Prevention (CDC) test method. Urea nitrogen [Mass/volume] in Serum or PlasmaOrdered By: Grayson Resendiz on 09-11-2022 Urea nitrogen [Mass/Vol] 12 mg/dL 7-25 [facility] WBC Auto (Bld) [#/Vol]Ordere d By: Grayson Resendiz on 09-11-2022 WBC (Bld) [#/Vol] 9.2 10*3/uL 3.8-11.6 [facility] Physician Orderon 06-16-2022 Physician Order [id number]# 1.00CD:127 Normal [facility] COVID/FLU RT-PCRon 3 SARS-CoV-2 (COVID-19) RNA ELLA+probe Ql (Unsp spec) Positive [facility] Other COVID/FLU RT-PCR Negative [facility] Other Basophils Auto (Bld) [#/Vol] Ordered By: Grayson Resendiz on 09-09-2021 Basophils (Bld) [#/Vol] 0.1 10*3/uL 0.0-0.2 [facility] Basophils/100 WBC Auto (Bld) Ordered By: Grayson Resendiz on 09-09-2021 Basophils/100 WBC (Bld) 0.9 % . [facility] Blood hemoglobin measurement (mass/volume)Ordered By: Grayson Resendiz on 09-09-2021 Hemoglobin (Bld) [Mass/Vol] 12.8 g/dL 11.8-15.4 [facility] Blood leukocytes automated c ount (number/volume)Ordered By: Grayson Resendiz on 09-09-2021 WBC (Bld) [#/Vol] 8.4 10*3/uL 4.5-11.0 [facility] Body fluid albumin measureme nt (mass/volume)Ordered By: Grayson Resendiz on 09-09-2021 Albumin (Body fld) [Mass/Vol] 3.4 g/dL 3.2-5.5 [facility] Cholesterol [Mass/volume] in Serum or PlasmaOrdered By: Grayson Resendiz on 09-09-2021 Cholesterol [Mass/Vol] 143 mg/dL 140-200 [facility] Comment on above: Chol less than 200 m g/dl low risk Chol 201-239 mg/dl borderline risk Chol 240 mg/dl and greater high risk Cholesterol in LDL Calc [Mas s/Vol]Ordered By: Grayson Resendiz on 09-09-2021 Cholesterol in LDL [Mass/Vol] 26 mg/dL 0-100 [facility] Comment on above: LDL ATP III CLASSIFI CATION LDL less than 100 mg/dL Optimal LDL 100-129 mg/dL Near or above optimal LDL 130-159 mg/dL Borderline high LDL 160-189 mg/dL High LDL greater than 189 mg/dL Very high Cholesterol in VLDL Calc [Ma ss/Vol]Ordered By: Grayson Resendiz on 09-09-2021 Cholesterol in VLDL [Mass/Vol] 70 mg/dL [facility] Creatinine and Glomerular fi ltration rate.predicted panel (S/P/Bld)Ordered By: Grayson Resendiz on 09-09-2021 Creatinine [Mass/Vol] 0.72 mg/dL 0.44-1.[address] [facility] Eosinophils Auto (Bld) [#/Vo l]Ordered By: Grayson Resendiz on 09-09-2021 Eosinophils (Bld) [#/Vol] 0.2 10*3/uL 0.0-0.45 [facility] Eosinophils/100 WBC Auto (Bl d)Ordered By: Grayson Resendiz on 09-09-2021 Eosinophils/100 WBC (Bld) 1.8 % . [facility] Erythrocyte distribution wid th Auto (RBC) [Ratio]Ordered By: Grayson Resendiz on 09-09-2021 Erythrocyte distribution width (RBC) [Ratio] 12.7 % 11.9-15.3 [facility] Estimated glomerular filtrat ion rate (GFR) non- AmericanOrdered By: Grayson Resendiz on 09-09-2021 GFR/1.73 sq M.predicted among non-blacks MDRD (S/P/Bld) [Vol rate/Area] > 60 mL/Min [facility] Globulin Calc (S) [Mass/Vol] Ordered By: Grayson Resendiz on 09-09-2021 Globulin (S) [Mass/Vol] 2.6 g/dL [facility] Hematocrit Auto (Bld) [Volum e fraction]Ordered By: Grayson Resendiz on 09-09-2021 Hematocrit (Bld) [Volume fraction] 38.2 % 34.0-46.4 [facility] Laboratory - Chemistry and C hemistry - challengeOrdered By: Grayson Resendiz on 09-09-2021 Glucose [Mass/Vol] 88 mg/dL 70-100 [facility] Laboratory - Hematology and Cell countsOrdered By: Grayson Resendiz on 09-09-2021 Nucleated RBC/100 WBC (Bld) [Ratio] 0.1 % 0-0.5 [facility] Lymphocytes Auto (Bld) [#/Vo l]Ordered By: Grayson Resendiz on 09-09-2021 Lymphocytes (Bld) [#/Vol] 3.6 10*3/uL 1.00-4.8 [facility] Lymphocytes/100 WBC Auto (Bl d)Ordered By: Grayson Resendiz on 09-09-2021 Lymphocytes/100 WBC (Bld) 42.1 % . [facility] MCH Auto (RBC) [Entitic mass ]Ordered By: Grayson Resendiz on 09-09-2021 MCH (RBC) [Entitic mass] 31.7 pg 24.7-34.3 [facility] MCHC Auto (RBC) [Mass/Vol]Or dered By: Grayson Resendiz on 09-09-2021 MCHC (RBC) [Mass/Vol] 33.4 g/dL 32.0-35.0 [facility] MCV Auto (RBC) [Entitic vol] Ordered By: Grayson Resendiz on 09-09-2021 MCV (RBC) [Entitic vol] 94.7 fL 80-100 [facility] Monocyte %Ordered By: Grayson Resendiz on 09-09-2021 Monocyte % 350 mg/dL 35-149 [facility] Comment on above: TRIG ATP III CLASSIF ICATION TRIG less than 150 mg/dL Normal TRIG 150-199 mg/dL Borderline high TRIG 200-500 mg/dL High TRIG greater than 500 mg/dL Very high Standard traceable to the Center for Disease Conrtrol and Prevention (CDC) test method. Monocytes Auto (Bld) [#/Vol] Ordered By: Grayson Resendiz on 09-09-2021 Monocytes (Bld) [#/Vol] 1.0 10*3/uL 0.0-0.8 [facility] Monocytes/100 WBC Auto (Bld) Ordered By: Grayson Resendiz on 09-09-2021 Monocytes/100 WBC (Bld) 12.2 % . [facility] Neutrophils Auto (Bld) [#/Vo l]Ordered By: Grayson Resendiz on 09-09-2021 Neutrophils (Bld) [#/Vol] 3.6 10*3/uL 1.8-7.7 [facility] Neutrophils/100 WBC Auto (Bl d)Ordered By: Grayson Resendiz on 09-09-2021 Neutrophils/100 WBC (Bld) 43.0 % . [facility] No Panel InformationOrdered By: Grayson Resendiz on 09-09-2021 Estimated GFR () > 60 mL/Min [facility] Comment on above: GFR estimated refere nce range: According to KDOQI guidelines, <60 ml/min/1.73m2 is sufficient to diagnose a patient with chronic kidney disease. Nicotine Metabolite Negative Cutoff=25 [facility] Comment on above: Performed at: - [address] [id number] Local Superintendent: Keerthi Crooks MD, Phone: [phone] Pharmacy Creatinine Clearance (Chem N/A [facility] Platelet mean volume Auto (B ld) [Entitic vol]Ordered By: Grayson Resendiz on 09-09-2021 Platelet mean volume (Bld) [Entitic vol] 8.1 fL 6.3-10.7 [facility] Platelets Auto (Bld) [#/Vol] Ordered By: Grayson Resendiz on 09-09-2021 Platelets (Bld) [#/Vol] 318 10*3/uL 150-450 [facility] Protein [Mass/volume] in Ser um or PlasmaOrdered By: Grayson Resendiz on 09-09-2021 Protein [Mass/Vol] 6.0 g/dL 6.1-7.9 [facility] RBC Auto (Bld) [#/Vol]Ordere d By: Grayson Resendiz on 09-09-2021 RBC (Bld) [#/Vol] 4.04 10*6/uL 3.60-5.00 [facility] Serum or plasma alanine mcpherson otransferase measurement without P-5'-P (enzymatic activiOrdered By: Grayson Resendiz on 09-09-2021 ALT No additional P-5'-P [Catalytic activity/Vol] 28 U/L 10-60 [facility] Serum or plasma albumin/glob ulin mass ratioOrdered By: Grayson Resendiz on 09-09-2021 Albumin/Globulin [Mass ratio] 1.3 {ratio} [facility] Serum or plasma alkaline luci sphatase measurement (enzymatic activity/volume)Ordered By: Grayson Resendiz on 09-09-2021 ALP [Catalytic activity/Vol] 59 U/L 32-92 [facility] Serum or plasma aspartate am inotransferase measurement (enzymatic activity/volume)Ordered By: Grayson Resendiz on 09-09-2021 AST [Catalytic activity/Vol] 25 U/L 10-42 [facility] Serum or plasma calcium hector urement (mass/volume)Ordered By: Grayson Resendiz on 09-09-2021 Calcium [Mass/Vol] 9.0 mg/dL 8.2-10.2 [facility] Serum or plasma chloride carloz surement (moles/volume)Ordered By: Grayson Resendiz on 09-09-2021 Chloride [Moles/Vol] 103 mmol/L 95-114 [facility] Serum or plasma high density lipoprotein (HDL) cholesterol measurementOrdered By: Grayson Resendiz on 09-09-2021 Cholesterol in HDL [Mass/Vol] 47 mg/dL 35-85 [facility] Comment on above: HDL CHOL ATP-III CLA SSIFICATION Cardiovascular Risk HDL > or equal to 60 mg/dL LOW HDL < 40 mg/dL HIGH Serum or plasma potassium me asurement (moles/volume)Ordered By: Grayson Resendiz on 09-09-2021 Potassium [Moles/Vol] 4.1 mmol/L 3.5-5.[address] [facility] Serum or plasma sodium measu rement (moles/volume)Ordered By: Grayson Resedniz on 09-09-2021 Sodium [Moles/Vol] 135 mmol/L 136-146 [facility] Serum or plasma total biliru bin measurement (mass/volume)Ordered By: Grayson Resendiz on 09-09-2021 Bilirubin [Mass/Vol] 0.6 mg/dL 0.3-1.2 [facility] Serum or plasma total carbon dioxide measurement (moles/volume)Ordered By: Grayson Resendiz on 09-09-2021 CO2 [Moles/Vol] 25.2 mmol/L 22.0-30.0 [facility] Serum or plasma total choles terol/high density lipoprotein (HDL) cholesterol mass ratOrdered By: Grayson Resendiz on 09-09-2021 Cholesterol.total/Nataliia sterol in HDL [Mass ratio] 3.0 {ratio} <5.0 [facility] Serum or plasma urea nitroge n measurement (mass/volume)Ordered By: Grayson Resendiz on 09-09-2021 Urea nitrogen [Mass/Vol] 8 mg/dL 9-23 [facility] TSH DL <= 0.005 mIU/L QnOrde red By: Grayson Resendiz on 09-09-2021 TSH Qn 1.51 m[IU]/L 0.45-5.33 [facility] Basophils Auto (Bld) [#/Vol] Ordered By: OPAL TERAN on 08-26-2021 Basophils (Bld) [#/Vol] 0.1 10*3/uL 0.0-0.2 [facility] Basophils/100 WBC Auto (Bld) Ordered By: OPAL TERAN on 08-26-2021 Basophils/100 WBC (Bld) 1.3 % . [facility] Blood hemoglobin measurement (mass/volume)Ordered By: OPAL TERAN on 08-26-2021 Hemoglobin (Bld) [Mass/Vol] 12.9 g/dL 11.8-15.4 [facility] Blood leukocytes automated c ount (number/volume)Ordered By: OPAL TERAN on 08-26-2021 WBC (Bld) [#/Vol] 8.5 10*3/uL 4.5-11.0 [facility] Eosinophils Auto (Bld) [#/Vo l]Ordered By: OPAL TERAN on 08-26-2021 Eosinophils (Bld) [#/Vol] 0.2 10*3/uL 0.0-0.45 [facility] Eosinophils/100 WBC Auto (Bl d)Ordered By: OPAL TERAN on 08-26-2021 Eosinophils/100 WBC (Bld) 1.9 % . [facility] Erythrocyte distribution wid th Auto (RBC) [Ratio]Ordered By: OPAL TERAN on 08-26-2021 Erythrocyte distribution width (RBC) [Ratio] 13.0 % 11.9-15.3 [facility] Hematocrit Auto (Bld) [Volum e fraction]Ordered By: OPAL TERAN on 08-26-2021 Hematocrit (Bld) [Volume fraction] 38.9 % 34.0-46.4 [facility] Laboratory - Hematology and Cell countsOrdered By: OPAL TERAN on 08-26-2021 Nucleated RBC/100 WBC (Bld) [Ratio] 0.0 % 0-0.5 [facility] Lymphocytes Auto (Bld) [#/Vo l]Ordered By: OPAL TERAN on 08-26-2021 Lymphocytes (Bld) [#/Vol] 3.0 10*3/uL 1.00-4.8 [facility] Lymphocytes/100 WBC Auto (Bl d)Ordered By: OPAL TERAN on 08-26-2021 Lymphocytes/100 WBC (Bld) 35.8 % . [facility] MCH Auto (RBC) [Entitic mass ]Ordered By: OPAL TERAN on 08-26-2021 MCH (RBC) [Entitic mass] 31.6 pg 24.7-34.3 [facility] MCHC Auto (RBC) [Mass/Vol]Or dered By: OPAL TERAN on 08-26-2021 MCHC (RBC) [Mass/Vol] 33.1 g/dL 32.0-35.[address] [facility] MCV Auto (RBC) [Entitic vol] Ordered By: OPAL TERAN on 08-26-2021 MCV (RBC) [Entitic vol] 95.7 fL 80-100 [facility] Monocytes Auto (Bld) [#/Vol] Ordered By: OPAL TERAN on 08-26-2021 Monocytes (Bld) [#/Vol] 0.8 10*3/uL 0.0-0.8 [facility] Monocytes/100 WBC Auto (Bld) Ordered By: OPAL TERAN on 08-26-2021 Monocytes/100 WBC (Bld) 8.9 % . [facility] Neutrophils Auto (Bld) [#/Vo l]Ordered By: OPAL TERAN on 08-26-2021 Neutrophils (Bld) [#/Vol] 4.4 10*3/uL 1.8-7.7 [facility] Neutrophils/100 WBC Auto (Bl d)Ordered By: OPAL TERAN on 08-26-2021 Neutrophils/100 WBC (Bld) 52.1 % . [facility] Platelet mean volume Auto (B ld) [Entitic vol]Ordered By: OPAL TERAN on 08-26-2021 Platelet mean volume (Bld) [Entitic vol] 8.7 fL 6.3-10.7 [facility] Platelets Auto (Bld) [#/Vol] Ordered By: OPAL TERAN on 08-26-2021 Platelets (Bld) [#/Vol] 328 10*3/uL 150-450 [facility] RBC Auto (Bld) [#/Vol]Ordere d By: OPAL TERAN on 08-26-2021 RBC (Bld) [#/Vol] 4.06 10*6/uL 3.60-5.00 [facility] Serum Swati Alvarado virus ear ly IgG antibody assay (units/volume)Ordered By: OPAL TERAN on 08-26-2021 EBV early IgG Qn (S) 50.7 U/mL 0.0-8.9 [facility] Comment on above: Hepatitis A, Hepatit is C and HIV antibodies may cross-react with this assay. Negative < 9.0 Equivocal 9.0 - 10.9 Positive >10.9 Performed at: [facility] [id number] Local Superintendent: Hemanth Laws PhD, Phone: [phone] Mononucleosis Test, [place] 0 06-24-2021 Heterophile Ab LA Ql (S) Negative [place] Other COVID/FLU/RSV RT-PCRon 06-16 SARS-CoV-2 (COVID-19) RNA ELLA+probe Ql (Unsp spec) Negative [facility] Other COVID/FLU/RSV RT-PCR Negative [facility] Other [facility] 06-16-2021 S. pyogenes Org specific cx Ql (Throat) Negative [facility] [employer] Other Quick [facility] Other Vital Signs Date Time Vital Sign Value Performing Clinician Facility 07-08-2024 08:01-0400 Body height 167.[address] [facility] 07-08-2024 08:01-0400 Body mass index (BMI) [Ratio] 28 kg/m2 [facility] 07-08-2024 08:01-0400 Body temperature 98 [degF] [facility] 07-08-2024 08:01-0400 Body weight 78.[address] [facility] 07-08-2024 08:01-0400 Diastolic blood pressure 76 mm[Hg] [facility] 07-08-2024 08:01-0400 Heart rate 81 /min [facility] 07-08-2024 08:01-0400 SaO2% (BldA) [Mass fraction] 97 % [facility] 07-08-2024 08:01-0400 Systolic blood pressure 114 mm[Hg] [facility] 12-07-2023 10:56-0400 Body height 167.64 cm PHYSICIAN NO [facility] 12-07-2023 10:56-0400 Body mass index (BMI) [Ratio] 31.6 kg/m2 PHYSICIAN NO [facility] 12-07-2023 10:56-0400 Body temperature 98.3 [degF] PHYSICIAN NO [facility] 12-07-2023 10:56-0400 Body weight 89.01 kg PHYSICIAN NO [facility] 12-07-2023 10:56-0400 Diastolic blood pressure 86 mm[Hg] PHYSICIAN NO [facility] 12-07-2023 10:56-0400 Heart rate 77 /min PHYSICIAN NO [facility] 12-07-2023 10:56-0400 Respiratory rate 18 /min PHYSICIAN NO [facility] 12-07-2023 10:56-0400 SaO2% (BldA) [Mass fraction] 99 % PHYSICIAN NO [facility] 12-07-2023 10:56-0400 Systolic blood pressure 123 mm[Hg] PHYSICIAN NO [facility] 04-24-2022 10:20-0400 Body height 167.64 cm Jimena Sy Other [place] [employer] Other 04-24-2022 10:20-0400 Body mass index (BMI) [Ratio] 29.7 kg/m2 Jimena Sy Other [employer] Other 04-24-2022 10:20-0400 Body temperature 98.5 [degF] Jimena Sy Other [employer] Other 04-24-2022 10:20-0400 Body weight 83.46 kg Jimena Sy Other [employer] Other 04-24-2022 10:20-0400 Respiratory rate 18 /min Jimena Kerrie Other [employer] Other 04-24-2022 10:20-0400 SaO2% (BldA) [Mass fraction] 98 % Jimena Kerrie Other [employer] Other 03-20-2022 13:05-0500 Body height 167.64 cm Jimena Kerrie Other [employer] Other 03-20-2022 13:05-0500 Body mass index (BMI) [Ratio] 29.7 kg/m2 Jimena Kerrie Other [employer] Other 03-20-2022 13:05-0500 Body temperature 98 [degF] Jimena Kerrie Other [employer] Other 03-20-2022 13:05-0500 Body weight 83.46 kg Jimena Kerrie Other [employer] Other 03-20-2022 13:05-0500 Diastolic blood pressure 83 mm[Hg] Jimena Kerrie Other [employer] Other 03-20-2022 13:05-0500 Respiratory rate 18 /min Jimena Kerrie Other [employer] Other 03-20-2022 13:05-0500 SaO2% (BldA) [Mass fraction] 98 % Jimena Kerrie Other [employer] Other 03-20-2022 13:05-0500 Systolic blood pressure 114 mm[Hg] Jimena Kerrie Other [employer] Other 09-26-2021 12:30-0400 Body height 167.64 cm Ashanti Missler Other [employer] Other 09-26-2021 12:30-0400 Body mass index (BMI) [Ratio] 31.29 kg/m2 Ashanti Missler Other [employer] Other 09-26-2021 12:30-0400 Body temperature 98.2 [degF] Ashanti Missler Other [employer] Other 09-26-2021 12:30-0400 Body weight 87.95 kg Ashanti Missler Other [employer] Other 09-26-2021 12:30-0400 Diastolic blood pressure 89 mm[Hg] Ashanti Missler Other [employer] Other 09-26-2021 12:30-0400 Respiratory rate 18 /min Ashanti Missler Other [employer] Other 09-26-2021 12:30-0400 SaO2% (BldA) [Mass fraction] 99 % Ashanti Missler Other [employer] Other 09-26-2021 12:30-0400 Systolic blood pressure 135 mm[Hg] Ashanti Missler Other [employer] Other 08-20-2021 10:00-0400 Body height 167.64 cm Opal Teran Other [employer] Other 08-20-2021 10:00-0400 Body mass index (BMI) [Ratio] 29.86 kg/m2 Opal Teran Other [employer] Other 08-20-2021 10:00-0400 Body temperature 97.3 [degF] Opal Trean Other [employer] Other 08-20-2021 10:00-0400 Body weight 83.92 kg Opal Teran Other [employer] Other 08-20-2021 10:00-0400 Diastolic blood pressure 73 mm[Hg] Opal Teran Other [employer] Other 08-20-2021 10:00-0400 Respiratory rate 18 /min Opal Teran Other [employer] Other 08-20-2021 10:00-0400 SaO2% (BldA) [Mass fraction] 99 % Opal Teran Other [employer] Other 08-20-2021 10:00-0400 Systolic blood pressure 109 mm[Hg] Opal Teran Other [employer] Other 06-24-2021 10:50-0400 Body height 167.64 cm Jimena Kerrie Other [employer] Other 06-24-2021 10:50-0400 Body mass index (BMI) [Ratio] 29.86 kg/m2 Jimena Kerrie Other [employer] Other 06-24-2021 10:50-0400 Body weight 83.92 kg Jimena Kerrie Other [employer] Other 06-20-2021 17:30-0400 Body height 167.64 cm Opal Teran Other [employer] Other 06-20-2021 17:30-0400 Body mass index (BMI) [Ratio] 29.86 kg/m2 Opal Teran Other [employer] Other 06-20-2021 17:30-0400 Body temperature 97 [degF] Opal Teran Other [employer] Other 06-20-2021 17:30-0400 Body weight 83.92 kg Opal Teran Other [employer] Other 06-20-2021 17:30-0400 Diastolic blood pressure 82 mm[Hg] Opal Teran Other [employer] Other 06-20-2021 17:30-0400 Respiratory rate 18 /min Opal Teran Other [employer] Other 06-20-2021 17:30-0400 SaO2% (BldA) [Mass fraction] 97 % Opal Teran Other [employer] Other 06-20-2021 17:30-0400 Systolic blood pressure 123 mm[Hg] Opal Teran Other [employer] Other 06-16-2021 11:00-0400 Body height 167.64 cm Opal Teran Other [employer] Other 06-16-2021 11:00-0400 Body mass index (BMI) [Ratio] 29.86 kg/m2 Opal Camarilloault Other [employer] Other 06-16-2021 11:00-0400 Body temperature 100.5 [degF] Opal Teran Other [employer] Other 06-16-2021 11:00-0400 Body weight 83.92 kg Opal Teran Other [employer] Other 06-16-2021 11:00-0400 Respiratory rate 18 /min Opal Teran Other [employer] Other 06-16-2021 11:00-0400 SaO2% (BldA) [Mass fraction] 95 % Opal Teran Other [employer] Other 11-29-2020 19:00-0400 Body height 167.64 cm Opal Teran Other [employer] Other 11-29-2020 19:00-0400 Body mass index (BMI) [Ratio] 29.86 kg/m2 Opal Teran Other [employer] Other 11-29-2020 19:00-0400 Body temperature 98.2 [degF] Opal Teran Other [employer] Other 11-29-2020 19:00-0400 Body weight 83.92 kg Opal Teran Other [employer] Other 11-29-2020 19:00-0400 Diastolic blood pressure 87 mm[Hg] Opal Camarilloault Other [employer] Other 11-29-2020 19:00-0400 Respiratory rate 18 /min Opal Teran Other [employer] Other 11-29-2020 19:00-0400 SaO2% (BldA) [Mass fraction] 97 % Opal Teran Other [employer] Other 11-29-2020 19:00-0400 Systolic blood pressure 134 mm[Hg] Opal Teran Other [employer] Other Encounters Encounter Date Encounter Type Care Provider Facility Start: 07-08-2024 End: 07-08-2024 ambulatory [facility] Work Phone: Start: 07-08-2024 End: 07-08-2024 Patient encounter procedure [facility] Work Phone: Start: 12-07-2023 End: 12-07-2023 ambulatory PHYSICIAN NO [facility] Work Phone: Start: 12-07-2023 End: 12-07-2023 Departed Referred PHYSICIAN NO [facility] [place] Work Phone: Start: 12-07-2023 End: 12-07-2023 ambulatory PHYSICIAN NO [facility] Work Phone: Start: 12-07-2023 End: 12-07-2023 Patient encounter procedure PHYSICIAN NO [facility] Work Phone: Start: 10-05-2023 End: 10-05-2023 Departed Referred PHYSICIAN NO [facility] [place] Start: 10-05-2023 End: 10-05-2023 ambulatory PHYSICIAN NO [facility] Work Phone: Start: 09-11-2022 End: 09-11-2022 ambulatory 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 [facility] Work Phone: Start: 09-11-2022 End: 09-11-2022 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 [facility]-Employee Benefit Screening Start: 08-21-2022 End: 08-21-2022 ambulatory 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 [facility] Work Phone: Start: 08-21-2022 End: 08-21-2022 Patient encounter procedure 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 [facility] Work Phone: Start: 06-15-2022 End: 06-16-2022 ambulatory MINING HELPER OPAL TERAN [place] Start: 04-24-2022 End: 04-24-2022 ambulatory Jimena Kerrie Other [employer] Other Start: 04-24-2022 Office outpatient vi sit 15 minutes Jimena Kerrie [facility] Start: 03-20-2022 End: 03-20-2022 ambulatory Jimena Kerrie Other [employer] Other Start: 03-20-2022 Office outpatient vi sit 15 minutes Jimena Kerrie [facility] Start: 12-23-2021 End: 12-23-2021 ambulatory Opal Teran Other [employer] Other Start: 12-23-2021 Telephone encounter Opal Peraltal t [facility] Start: 09-26-2021 End: 09-26-2021 ambulatory Ashanti Padilla Other [employer] Other Start: 09-26-2021 Patient encounter procedure Ashanti Padilla [facility] Start: 09-21-2021 End: 09-21-2021 ambulatory Opal Teran Other [employer] Other Start: 09-21-2021 Telephone encounter Opal Kathrynl t [facility] Start: 09-09-2021 End: 09-09-2021 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 Work Phone: [facility]-Employee Benefit Screening Start: 08-26-2021 End: 08-26-2021 Patient encounter procedure 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 Work Phone: [facility] [place] Start: 08-20-2021 End: 08-20-2021 ambulatory Opal Teran Other [employer] Other Start: 08-20-2021 Office outpatient vi sit 25 minutes Opal Camarilloault [facility] Start: 07-04-2021 End: 07-04-2021 ambulatory Opaljuve Teran Other [employer] Other Start: 07-04-2021 Telephone encounter Opaljuve Peraltal t [facility] Start: 06-24-2021 End: 06-24-2021 ambulatory Jimena Kerrie Other [employer] Other Start: 06-24-2021 Office outpatient vi sit 15 minutes Jimena Kerrie [facility] Start: 06-23-2021 End: 06-23-2021 ambulatory Opal Teran Other [employer] Other Start: 06-23-2021 Telephone encounter Opaljuve Peraltal t [facility] Start: 06-20-2021 End: 06-20-2021 ambulatory Opaljuve Teran Other [employer] Other Start: 06-20-2021 Patient encounter procedure Opal Camarilloault [facility] Start: 06-20-2021 Periodic preventive med est patient 40-64yrs Opal Rolando [facility] Start: 06-16-2021 End: 06-16-2021 ambulatory Opal Rolando Other [employer] Other Start: 06-16-2021 Office outpatient vi sit 15 minutes Opal Teran [facility] Start: 06-09-2021 End: 06-09-2021 ambulatory Opal Teran Other [employer] Other Start: 06-09-2021 Patient encounter procedure Opal Teran [facility] Start: 06-09-2021 Telephone encounter Opal waterman [facility] Start: 01-31-2021 ([facility] C Vac) [facility] Co vid Vaccine Pinky Dubois [facility] Start: 01-31-2021 End: 01-31-2021 ambulatory Pinky Dubois Other [employer] Other Start: 12-24-2020 End: 12-24-2020 ambulatory Opal Teran Other [employer] Other Start: 12-24-2020 Patient encounter procedure Opal Teran [facility] Start: 12-24-2020 Telephone encounter Opal waterman [facility] Start: 11-29-2020 End: 11-29-2020 ambulatory Opal Teran Other [employer] Other Start: 11-29-2020 Encounter for genera l adult medical examination without abnormal findings Opal Teran [facility] Start: 11-29-2020 Periodic preventive med est patient 18-39 yrs Opal Teran [facility] Procedures Date Procedure Procedure Detail Performing Clinician Start: 12-07-2023 Quick Strep (POC) PHYSI NATALIA NO FAMILY Start: 08-21-2022 Screening mammograph y of bilateral breasts 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[place] Opal Rolando Throat culture Jimena Sy Other Plan of Treatment Date Care Activity Detail Author Start: 12-07-2023 Throat culture Throat Culture [facility] Start: 12-07-2023 Bacteria identified in Throat by Aerobe culture [facility] Start: 09-11-2022 [facility] Glucose measurement estimated from glycated hemoglobin [facility] Glucose measurement estimated from glycated hemoglobin [facility] Hemoglobin A1c measurement [facility] Thyroid gland [facility] Immunizations Immunization Date Immunization Notes Care Provider Fa cility 03-20-2022 tetanus toxoid, redu caroline diphtheria toxoid, and acellular pertussis vaccine, adsorbed Jimena Kerrie Other [facility] 01-31-2021 COVID-19 Elizabeth Dubois Other [facility] 03-11-2020 COVID-19 mRNA-1273 (Moderna) [facility] Opal Teran Work Phone: [facility] 02-12-2020 COVID-19 mRNA-1273 (Moderna) ARAM[facility]Snow Teran Work Phone: [facility] Payers Date Payer Category Payer Unknown [id number] 2023 Self-pay [id number] 2022 Unknown [id number] 1980 Unknown [id number] Unknown [id number] [id number] Unknown [id number] Social History Date Type Detail Facility Unknown if ever smoked [employer] Other Sex Assigned At Sex Assigned At [employer] Other Start: 1980 Sex Assigned At Female [facility] Start: 07-08-2024 Tobacco smoking status NHIS Never smoked tobacco (finding) [facility] Start: 07-08-2024 Sex Female (finding) [facility] NEGATED: Highlighted row [facility] Clinical Notes 11-29-2020 to 04-24-2022 Note Date & Type Note Facility 04-24-2022 Evaluation note Encounter Date Diagnosis Assessment Notes Apr, Contact with and (suspected) exposure to covid-19 (ICD-10 - Z20.822) Apr, COVID-19 (ICD-10 - U07.1) Discharge Instructions for COVID-19 (Suspected or Confirmed ) material was printed Drink plenty fluids, get plenty of rest. Take Tylenol or Motrin as needed for aches pains or fevers. Follow-up with your family physician if no improvement in 2 to 3 days. You must quarantine for 5 days after the onset of your symptoms of COVID. [employer] Other 02-13-2023 Evaluation note* Encounter Date Diagnosis Assessment Notes Treatment Notes Treatment Clinical Notes Mar, Facial laceration, initial encounter (ICD-10 - S01.81XA) Caring for a laceration after repair material was printed Keep the wound clean and dry. You may shower without covering the wound. Apply antibiotic ointment to the wound daily. Have the stitches removed in 7 days by your PCP, at any urgent care or any emergency room. Take the cephalexin as prescribed until gone. Take Tylenol or Motrin as needed for pain. [employer] Other 11-18-2022 Evaluation note* Encounter Date Diagnosis Assessment Notes Treatment Notes Treatment Clinical Notes Dec, RONNA (generalized anxiety disorder) (ICD-10 - F41.1) [employer] Other 08-22-2022 Evaluation note* Encounter Date Diagnosis Assessment Notes Treatment Notes Treatment Clinical Notes Sep, Contact dermatitis (ICD-10 - L25.9) Findings consistent with allergic reaction to unknown source. Discussed possibility of contact with foreign food, drink, environmental exposure etc. Discussed role of steroids and treating this reaction in addition to an antihistamine such as alra-uet-lcrumjo Claritin or Zyrtec. Patient may take Benadryl/Vistaril at night for nighttime relief. Discussed that patient would need longer taper steroids as a histamine remains in the body for a long period of time. Patient may also add Pepcid or Zantac as a secondary histamine duane.Advised on side effects to be aware of with steroid treatment as well as signs and symptoms to report to the ER for including trouble breathing, wheezing, thick tongue, swollen lips, or other chest pain or respiratory issues. Patient verbalizes understanding and agrees with plan of care [employer] Other 08-17-2022 Evaluation note* Encounter Date Diagnosis Assessment Notes Treatment Notes Treatment Clinical Notes Sep, Mixed hyperlipidemia (ICD-10 - E78.2) [employer] Other 07-16-2022 Evaluation note* Encounter Date Diagnosis Assessment Notes Treatment Notes Treatment Clinical Notes Aug, Left cervical lymphadenopathy (ICD-10 - R59.0) Will do simple labs to see if EBV comes back positive since it is more specific test [employer] Other 05-20-2022 Evaluation note* Encounter Date Diagnosis Assessment Notes Treatment Notes Treatment Clinical Notes June, Sore throat (ICD-10 - J02.9) June, Pharyngitis, unspecified etiology (ICD-10 - J02.9) Drink plenty fluids, get plenty of rest. Continue home medications as prescribed. Follow-up with your family physician if no improvement in 2 days. Go to the ER for worsening symptoms or concern June, Lymphadenopathy (ICD-10 - R59.1) [employer] Other 05-16-2022 Evaluation note* Encounter Date Diagnosis Assessment Notes Treatment Notes Treatment Clinical Notes June, Women's annual routine gynecological examination (ICD-10 - Z01.419) Today during the appointment we discussed sexual history and practices, control options and all screenings that should be completed including the Pap test. We also discussed other health screenings that should be done based on your history. We will come up with a plan together of when the best time for your next screening should be and what further interventions are needed. [employer] Other 05-12-2022 Evaluation note* Encounter Date Diagnosis Assessment Notes Treatment Notes Treatment Clinical Notes June, Sore throat (ICD-10 - J02.9) Today test was performed in office. Results are currently negative. That does not mean that you will not develop COVID or do not currently have a low viral count of COVID. The rapid test works best if symptoms have been over 72 hours and the results can vary if you are asymptomatic There is a higher chance of false negative results to occur if testing is performed too soon. It is recommended that even if results are negative and you have been exposed to someone that has COVID that you follow current CDC recommendations. These can be found at CDC.GOV. Follow up with primary care provider if symptoms persist or do not improve *VIRAL URI HANOUT GIVEN ON OTC TREATMENTS, FOLLOW UP AND WHEN TO SEEK EMERGENCY TREATMENT June, Laryngitis (ICD-10 - J04.0) Symptoms of laryngitis is caused by viruses. Salt water gargles may help with discomfort. Take medications as directed. Cool mist humidifier, steaming up bathroom with shower may help with symptom relief. Follow up with primary care provider if no improvement of symptoms [employer] Other 05-05-2022 Evaluation note* Encounter Date Diagnosis Assessment Notes Treatment Notes Treatment Clinical Notes June, Well woman exam with routine gynecological exam (ICD-10 - Z01.419) [employer] Other 12-27-2021 Evaluation note* Encounter Date Diagnosis Assessment Notes Treatment Notes Treatment Clinical Notes Jan, Encounter for immunization (ICD-10 - Z23) Patient presents for COVID-19 vaccination BOOSTER. Pre-screening form answers evaluated with patient. Patient denies current illness or allergic reaction to component of COVID-19 vaccine. Patient provided with current copy of EUA. [employer] Other 11-19-2021 Evaluation note* Encounter Date Diagnosis Assessment Notes Treatment Notes Treatment Clinical Notes Dec, Well woman exam with routine gynecological exam (ICD-10 - Z01.419) [employer] Other 10-25-2021 Evaluation note* Encounter Date Diagnosis Assessment Notes Treatment Notes Treatment Clinical Notes Nov, RONNA (generalized anxiety disorder) (ICD-10 - F41.1) Today during the appointment we discussed depression and emotions. We talked about treatment options that include both counseling and medication interventions. When we first start treatment, it is common to have to be seen more frequently as we figure out the best treatment regimen that fits you as an individual. We will be able to space out appointments more once we find what works for you. If at any time you feel like your symptoms have increased in severity or you want to hurt yourself, please never hesitate to contact us and we will get you in to be seen. Also always know the [facility] Health Emergency Number is 24 hours a day available, even on holidays there is someone you can reach out to. Also we will check other labs yearly to screen for other health issues. Please remember we are a team and your opinion is very important in all of your healthcare decisions Nov, Encounter for wellness examination in adult (ICD-10 - Z00.00) Nov, Mixed hyperlipidemia (ICD-10 - E78.2) DIscussed diet changes, adding fish oil supplement (KRILL) and taking medication daily to lower cholesterol overall and decrease ration. Nov, Other Discussed all t est results in office today and what further steps are needed. Patient states understanding. [employer] Other Evaluation noteNo InformationNort [employer] Other Evaluation noteNo assessment information available [facility] Work Phone: Evaluation note* Diagnosis Onset Date Resolution Status Acute pharyngitis acute [facility] Work Phone: Evaluation note* Diagnosis Onset Date Resolution Status Admit Date Anxiety acute July 08, 2024 8:01am Swelling, mass, or lump in h ead and neck acute July 08, 2024 8 :01am [facility] Work Phone: History general Narrative - Reported* Type Description Date Medical History Anxienty Medical History RLS Medical History Migraines Surgical History cholecystectomy Surgical History C section 1 [employer] Other History general Narrative - Reported* Type Description Date Medical History Anxienty Medical History RLS Medical History Migraines Surgical History cholecystectomy Surgical History C section 1 Hospitalization History see above [employer] Other Chief Complaint and Reason for Visit Chief Complaint See order Pillars Chief Complaint Screening Chief Complaint Screening Pillars Chief Complaint Pillars Chief Complaint Pillars Sore throat Chief Complaint Pillars Sore throat Sore throat Reason for Visit Acute pharyngitis Chief Complaint Admit Date establish July 08, 2024 8:01a m Reason for Visit Admit Date Anxiety July 08, 2024 8:01a m Swelling, mass, or lump in head and neck July 08, 2024 8:01am Advance Directives Advance Directive Response Recorded Date/ Time Advance Directives No August 03 11:01am Summary Purpose Family History No Family History Records FoundNo Family History Records Found Additional Source Comments REASON FOR VISIT (unrecogniz ed section and content) ANNUAL EXAM, PILLAR REVIEW, [facility] Women wellness over 21, [facility] Lab/Test Follow upNo InformationEMPLOYEE MODERNA BOOSTERNo InformationNo InformationSILVER ACCORD, SORE THROAT, PAINFULL TO SWALLOWANUAL FEMALE EXAM, [facility] Wellness under 21SILVER ACCORD, SORE THROAT, PAINFULL TO SWALLOWNo InformationCOUGH, CONGESTION, SORE THROATLUMP UNDER JAWNo InformationPOSSIBLE POISON IVYNo InformationL EAR LACERATION, ARM IS SCRAPED UP A LITTLESORE THROAT TIRED ACHEY COUGH Care Teams (unrecognized sec tion and content) Team Status: Inactive Member Role Status Dates BHPUENDRA Arndt Primary Care Provider Active Grayson Resendiz DO [facility] Attending Provider Active Team Status: Inactive Member Role Status Dates BHUPENDRA Arndt Primary Care Provider, Atten ding Provider Active Team Status: Active Member Role Status Dates BHUPENDRA Arndt Primary Care Provider Active Team Status: Inactive Member Role Status Dates BHUPENDRA Arndt Primary Care Provider Active NANETTE Arndt Attending Provider Active Team Status: Active Member Role Status Dates PHYSICIAN NO FAMILY Primary Care Provider Active Team Status: Inactive Member Role Status Dates PHYSICIAN NO FAMILY Primary Care Provider Active Start: October 05, 2023 End: October 05, 2023 Grayson Resendiz - [facility] , DO [facility] Attending Provider Active Start: October 05, 2023 End: October 05, 2023 Team Status: Active Member Role Status Dates Opal Teran [facility] Primary Care Provider Activ e Team Status: Inactive Member Role Status Dates Ruthie Da Silva APRN Attending Provider Active Start: December 07, 2023 End: December 07, 2023 Opal Teran [facility] Primary Care Provider Activ e Start: December 07, 2023 End: December 07, 2023 Team Status: Inactive Member Role Status Dates Ruthie Da Silva APRN Attending Provider Active Start: December 07, 2023 End: December 07, 2023 Team Status: Active Member Role Status Dates Meme Bar APRN [employer]C Primary Care Provider Active Team Status: Inactive Member Role Status Dates Meme Bar APRN [employer] SUPER[employer]OR-C Primary Care Provider, Attending Provider Active Start: July 08, 2024 End: July 08, 2024 Goals (unrecognized section and content) Goals may be documented in a n alternate section INFORMATION SOURCE (unrecogn ized section and content) DATE CREATED AUTHOR 06/17/2022 [facility] DATE CREATED AUTHOR AUTHOR'S ORGANIZ ATION 12/13/2023 [facility] [facility] FOR RECORDS PERTAINING TO PATIENTS WHO ARE OR HAVE BEEN ENROLLED IN A CHEMICAL DEPENDENCY/SUBSTANCEABUSE PROGRAM, SOME INFORMATION MAY BE OMITTED. This clinical summary was aggregated from multiple sources. Caution should be exercised in using it in the provision of clinical care. This summary normalizes information from multiple sources, and as a consequence, information in this document may materially change the coding, format and clinical context of patient data. In addition, data may be omitted in some cases. CLINICAL DECISIONS SHOULD BE BASED ON THE PRIMARY CLINICAL RECORDS. [employer] provides no warranty or guarantee of the accuracy or completeness of information in this document.
--- NOTE | 2024-07-16 06:50 | US_ITS ---
The [address] [address] Patient Name: FELIX LOPEZ MRN: [id number] date: 1980 Sex: F Assigned Patient Location: US Current Patient Location: US Accession/Order Number: [id number] Exam Date: 07/16/2024 09:21 Report Date: 07/16/2024 09:31 At the request of: GARY ACOSTA Procedure: US thyroid THYROID ULTRASOUND CLINICAL DATA: Submandibular swelling for the past 2 months. Recent facial cellulitis. COMPARISON: CT 04/11/2024 The right thyroid lobe measures 4.9 x 1.6 x 1.3 cm. The left lobe measures 4.0 x 1.2 x 1.1 cm. The isthmus measures 4 mm. A small colloid cyst is seen at the superior pole of the right thyroid lobe measuring 4 mm. There is a mixed echogenicity nodule with hyperechoic foci the inferior pole of the right measuring 8 x 5 x 6 mm (TI-RADS 4). On the left at the midpole posteriorly, there is a heterogeneously hypoechoic nodular area measuring 12 x 8 x 8 mm (TI-RADS 4). Adjacent to the left thyroid lobe there is a subcutaneous hypoechoic nodule measuring 23 x 7 x 12 mm. This is believed to be a lymph node. There is also a hypoechoic nodule in the pretracheal region measuring 6 x 3 x 4 mm. In the area of swelling in the submandibular region there are still multiple prominent lymph nodes. The largest on the right measures 2.4 x 1.8 x 1.6 cm. The largest on the left measures 2.9 x 1.2 x 2.4 cm. US/US thyroid IMPRESSION: CONTINUED CERVICAL LYMPHADENOPATHY. SMALL, MILDLY SUSPICIOUS THYROID NODULES. ANNUAL FOLLOW-UP IS SUGGESTED. Impression dictated by: Milana Guzman M.D. 07/16/2024 9:31 AM Dictation Location: [place] [address] Electronically authenticated by: [id number] Y Date: 07/16/2024 09:31
== END 2024-07-16 06:44 | disposition home or self-care (01) ==
LOC: US 06:45
PROVIDERS: PCP Nurse Practitioner Family; Visit Provider Nurse Practitioner Family
DX: R22.0 Localized swelling, mass and lump, head (principal); R22.1 Localized swelling, mass and lump, neck
CPT/HCPCS: 76536